=== PATIENT | female | born 1965 | race American Indian/Alaskan Native ===

== ENCOUNTER 2016-09-20 01:42 | Emergency (ER) | payer SELFPAY ==
[2016-09-20] MEDS ORDERED: TYLENOL #3 PO ONE (05:31)
[2016-09-20] MEDS ORDERED: TYLENOL #3 ONE (05:31)
[2016-09-20] MEDS ORDERED: TRIMOX PO ONE (05:31)
--- NOTE | 2016-09-20 05:31 | Emergency Department Report ---
HPI - General Chief Complaint: Dental/Oral Time Seen by Provider: 09/20/16 05:21 - HPI HPI: The patient is a 50-year-old female who presents to ED complaining of 10/10 pain in the left side of his mouth x 3 days . Patient states that the pain started 3 days ago and has increased in severity over the last day. The pain is exacerbated by eating and opening of the mouth. Patient states the pain is alleviated initially with pain medication but comes back. Patient states that it radiates towards ear. Patient describes a as a throbbing, pressure-like sensation. Patient states otherwise well and has no other complaints. Patient has had no fevers and no chills. No chest pain, no shortness of breath. No abdominal pain. No shortness of breath or recent trauma to the face. ED Past Medical Hx - Past Medical History Previous Medical History?: No - Social History Smoking Status: Unknown if ever smoked - Medications Home Medications: Home Medications Medication Instructions Recorded Confirmed Last Taken Type Acetaminophen/Codeine [Tylenol 1 tab PO Q6H #12 tablet 09/20/16 Unknown Rx /Codeine # 3 tab] Amoxicillin [Amoxicillin TAB] 875 mg PO BID #14 tablet 09/20/16 Unknown Rx ED Review of Systems ROS: Stated complaint: TOOTHACHE Other details as noted in HPI Constitutional: denies: chills, fever Eyes: denies: eye pain, eye discharge, vision change ENT: dental pain. denies: ear pain, throat pain, hearing loss, epistaxis, congestion Respiratory: denies: cough, shortness of breath, wheezing Cardiovascular: denies: chest pain, palpitations Endocrine: no symptoms reported Gastrointestinal: denies: abdominal pain, nausea, diarrhea Genitourinary: denies: urgency, dysuria, discharge Musculoskeletal: denies: back pain, joint swelling, arthralgia Skin: denies: rash, lesions Neurological: denies: headache, weakness, paresthesias Psychiatric: denies: anxiety, depression Hematological/Lymphatic: denies: easy bleeding, easy bruising Physical Exam - Physical Exam Vital Signs: Vital Signs 09/20/16 04:04 Temperature 98.6 F Pulse Rate 60 Respiratory 18 Rate Blood Pressure 145/82 O2 Sat by Pulse 99 Oximetry Physical Exam: GENERAL: Alert and oriented x3, no apparent distress, Normal Gait, atraumatic. HEAD: Head is normocephalic and a-traumatic. EYES: Extra ocular muscles are intact. Pupils are equal, round, and reactive to light and accommodation. MOUTH:Mouth is well hydrated and without lesions. Tonsils nonerythematous or swollen, Uvula midline, Tongue not elevated. Mucous membranes are moist. Posterior pharynx clear, no exudate or lesions. Patent airways. Tooth #18 tender to palpation, no gingival enlargement, no active bleeding, dental caries on tooth #18, missing tooth #14 and 15 NECK: Supple. Non edematous, No carotid bruits. No lymphadenopathy or thyromegaly. LUNGS: Symetrical with respiration, No wheezing, no rales or crackles, CTAB. HEART: S1, S2 present, regular rate and rhythm without murmur, no rubs, no gallops. Non tender to palpation SKIN: Warm and dry, No lesions, No ulceration or induration present. ED Course Vital Signs 09/20/16 04:04 Temperature 98.6 F Pulse Rate 60 Respiratory 18 Rate Blood Pressure 145/82 O2 Sat by Pulse 99 Oximetry ED Medical Decision Making - Medical Decision Making 29-year-old female who presents with left-sided Facial pain secondary to odontogenic caries ED course: Patient received 1000 mg of amoxicillin, 2 tablets of Tylenol No. 3. Odontogenic infection versus ear infection. Based upon history and physical examination, pain is a result of an infection of tooth number 18,19 and that the pain she feels on the right side of his face and towards the ear is referred pain from this infectious process. She has no evidence of acute impending airway compromise. At this point, patient will be discharged home on some antibiotics and pain trial, she will do well with an outpatient course of antibiotics. Follow up with the [facility] as referred Critical care attestation.: If time is entered above; I have spent that time in minutes in the direct care of this critically ill patient, excluding procedure time. ED Disposition Clinical Impression: Dental caries, Tooth infection Disposition: -01 TO HOME OR SELFCARE Is pt being admited?: No Does the pt Need Aspirin: No Condition: Stable Instructions: Dental Caries (ED), Toothache (ED) Prescriptions: Acetaminophen/Codeine [Tylenol /Codeine # 3 tab] 1 tab PO Q6H #12 tablet Amoxicillin [Amoxicillin TAB] 875 mg PO BID #14 tablet Referrals: [facility] [Outside] - 3-5 Days [facility] [Outside] - 3-5 Days Forms: Accompanied Note, Work/School Release Form(ED) Time of Disposition: 05:33
[2016-09-20 06:46] VITALS: BP 128/74
== END 2016-09-20 06:47 | disposition home or self-care (01) ==
LOC: ED 01:42
DX: K02.9 Dental caries, unspecified (principal)
CPT/HCPCS: 99282